=== PATIENT | female | born 1955 | race Caucasian/White ===

== ENCOUNTER 2019-02-09 05:28 | Emergency (ER) | payer OTHER ==
[~2019-02-09] VITALS: Ht 167.6 cm; Wt 71.2 kg
[2019-02-09 05:40] VITALS: Ht 167.6 cm; Wt 71.2 kg
[2019-02-09 06:45] VITALS: BP 125/55
== END 2019-02-09 06:45 | disposition home or self-care (01) ==
LOC: ED 05:28
DX: K12.0 Recurrent oral aphthae (principal); I10 Essential (primary) hypertension